=== PATIENT | female | born 1935 | race Asian ===

== ENCOUNTER → 2016-08-05 | Day surgery (SDC) | payer OTHER ==
[~2016-08-05] MED LIST: ACTOS PO; ACTOS30 MG PO; ALPRAZOLAM PO; AMARYL2 MG PO; ANEXSIA 7.5/3251 TA1 PO; ASPIRIN81 MG PO; ATORVASTATIN CA80 MG PO; AZULFIDINE ENT500 MG PO; AZULFIDINE PO; BENTYL10 MG DOB; BENZONATATE200 M1 PO; BETAMETHASONE D15 G1 TOP; BUMEX1 MG PO; CALCIUM + D 6001 TA1 PO; CALCIUM + VITA1 EACH PO; CALCIUM 600 +1 EA10 PO; CIPRO PO; CLOBETASOL 0.0560 GM TOP; ENBREL50 MG/ML IM; FISH OIL 1,2001 EAC2 PO; FOSAMAX PO; FOSAMAX70 MG PO; GLUCOPHAGE XR500 MG PO; HYDRALAZINE HCL25 MG PO; HYDROCODON-ACE1 EA12 PO; HYDROCODON-ACE1 EAC1 PO; HYDROCODON-ACE1 EAC7 PO; HYDROXYZINE HCL10 MG PO; JANUVIA PO; JANUVIA100 MG PO; K-DUR20 ME1 PO; LEFLUNOMIDE10 MG PO; LIPITOR20 MG PO; LOMOTIL WHITE2.5 M1 PO; LOMOTIL WHITE2.5 MG PO; LORTAB 7.5-3251 EACH PO; LORTAB 7.5-5001 TAB PO; LORTAB 7.51 TAB 7.5/ PO; MAG-OX 400400 MG PO; MEDROL DOSEPAK4 MG PO; METFORMIN HCL1000 M1 PO; METFORMIN HCL500 M1 PO; METOPROLOL SUCC25 MG PO; METOPROLOL TAR25 MG PO; MULTI VITAMIN1 EACH PO; NEURONTIN PO; NEURONTIN100 MG PO; NORVASC PO; NORVASC2.5 MG PO; ONDANSETRON HCL4 M1 PO; ORENCIA IV; PATIENT'S PHARMACY; PERCOCET5/325 PO; PHENERGAN PO; PHENERGAN25 MG PO; PIOGLITAZONE45 MG PO; PREDNISOLONE5 MG PO; PREDNISONE PO; PREDNISONE5 M1 PO; PREDNISONE5 MG PO; PRILOSEC PO; PRILOSEC20 MG DOB; PRILOSEC20 MG PO; PROTOPIC TOP; SIMPONI50 MG/0.1 SQ; SIMPONI50 MG/0.5 SQ; SULFADIAZINE500 M1 PO; SULFASALAZINE500 M1 PO; SULFAZINE PO; TESSALON200 MG PO; TOPROL XL PO; TRIAMCINOLONE A15 G3 EXT; TRIAMCINOLONE A15 G3 TOP; TYGACIL IV; VICODIN 5/500 T1 TAB PO; VITAMIN D 22000 UNIT PO; VITAMIN D2000 UNI1 PO; VITAMIN D2000 UNIT PO; XANAX0.5 M1 PO; XANAX0.5 MG PO; ZESTRIL10 M2 PO; ZOCOR PO; ZOCOR20 MG PO; ZOFRAN ODT4 MG; ZOFRAN ODT4 MG DOB; ZOFRAN ODT4 MG PO; ZOFRAN ODT4 MG SL; ZOVIRAX15 GM TP; ZOVIRAX400 MG PO; ZOVIRAX800 MG PO; [UNRECOGNIZED DRUG - OTHER] TOP
--- NOTE | ~2016-08-05 | OR ---
Unit #: [id number] #: [id number] Patient: REBECCA BAÑUELOS [id number] [address] [address] [id number] O MR#: [id number] NAME: REBECCA BAÑUELOS ROOM: Date of Procedure: 08/05/2016 Admission Date: 08/05/2016 Surgeon: Isreal Cook M.D. : 1935 Attending Physician: Isreal Cook M.D. Primary Care Physician: Isra Gamino M.D. [facility] OPERATIVE NOTE PROCEDURE PERFORMED Caudal epidural steroid injection under x-ray guided needle placement with provider administered conscious sedation. PREOPERATIVE DIAGNOSES 1. Acute lumbar radiculitis. 2. Spinal stenosis, lumbosacral spine. 3. Degenerative joint disease, lumbosacral spine. 4. Degenerative disk disease, lumbosacral spine. INDICATIONS FOR PROCEDURE The patient presents today with longstanding history of chronic lumbar radicular pain secondary to her underlying degenerative processes. She is generally fairly well managed medically with ongoing continuous conservative measures; however, she does occasionally experience exacerbations, which to date have only responded to interventional pain management procedures. She presents today currently experiencing exacerbation, which is completely consistent with past exacerbations and requests an epidural steroid injection. After discussing risks and benefits of proceeding today with a caudal approach epidural steroid injection, the patient agreed this would be the appropriate course of action. DESCRIPTION OF PROCEDURE She was then taken to the operating room, where she was prepped and draped in sterile manner. Standard monitors were applied. She was sedated with 2 mg of IV Versed and the caudal epidural space accessed under x-ray guidance using loss of resistance technique. Needle placement was confirmed with injection of 2 mL of Omnipaque. Following successful needle placement confirmation, the patient received an injectate containing 6 mL normal saline and 80 mg of methylprednisolone. She tolerated this procedure well. She was discharged home with followup instructions, which include return to this clinic on 11/13/2016 if we could be of further service to her. Total x-ray time was 3 seconds. Dictated by... Lnidsay Rizo/yared TD: 08/06/2016 01:17 JOB #: [id number] Unit #: [id number] #: [id number] Patient: REBECCA BAÑUELOS [facility] OPERATIVE NOTE X Hunter Cook MD PROCEDURE OPERATIVE NOTE
== END | disposition home or self-care (01) ==
LOC: CCSC 09:21
DX: M47.27 Other spondylosis with radiculopathy, lumbosacral region (principal); M51.17 Intervertebral disc disorders with radiculopathy, lumbosacral region; M48.07 Spinal stenosis, lumbosacral region; K21.9 Gastro-esophageal reflux disease without esophagitis; Z88.1 Allergy status to other antibiotic agents; Z88.2 Allergy status to sulfonamides
CPT/HCPCS: 82947; J1040; J2250

== ENCOUNTER 2016-10-23 14:40 | Emergency (ER) | payer OTHER ==
[~2016-10-23 14:40] MED LIST changes: -ASPIRIN81 MG PO; -ATORVASTATIN CA80 MG PO; -BENZONATATE200 M1 PO; -BUMEX1 MG PO; -CALCIUM 600 +1 EA10 PO; -HYDROCODON-ACE1 EA12 PO; -K-DUR20 ME1 PO; -LEFLUNOMIDE10 MG PO; -MAG-OX 400400 MG PO; -MEDROL DOSEPAK4 MG PO; -ONDANSETRON HCL4 M1 PO; -PATIENT'S PHARMACY; -SULFASALAZINE500 M1 PO
[2016-10-29] MEDS ORDERED: MEDROL DOSEPAK4 MG PO (12:54)
[2016-10-29] MEDS ORDERED: CALCIUM 600 +1 EA10 PO (12:59)
[2016-10-29] MEDS ORDERED: SULFASALAZINE500 M1 PO (13:05)
[2016-10-29] MEDS ORDERED: HYDROCODON-ACE1 EA12 PO (13:08)
[2016-10-29] MEDS ORDERED: ONDANSETRON HCL4 M1 PO (14:10)
[2016-10-29] MEDS ORDERED: BENZONATATE200 M1 PO (14:11)
[2016-10-29] MEDS ORDERED: LOMOTIL WHITE2.5 M1 PO (14:13)
[2016-10-29] MEDS ORDERED: LEFLUNOMIDE10 MG PO (14:14)
== END 2016-10-23 18:50 | disposition home or self-care (01) ==
LOC: CED 14:40
DX: G89.29 Other chronic pain (principal); M54.5 Low back pain; M06.9 Rheumatoid arthritis, unspecified; Z90.49 Acquired absence of other specified parts of digestive tract; Z88.0 Allergy status to penicillin; Z88.1 Allergy status to other antibiotic agents; Z88.8 Allergy status to other drugs, medicaments and biological substances; Z79.899 Other long term (current) drug therapy
CPT/HCPCS: 96372; 99283; J2270; J2930

== ENCOUNTER → 2016-10-30 | Day surgery (SDC) | payer OTHER ==
[~2016-10-30] MED LIST changes: +ASPIRIN81 MG PO; +ATORVASTATIN CA80 MG PO; +BENZONATATE200 M1 PO; +BUMEX1 MG PO; +CALCIUM 600 +1 EA10 PO; +HYDROCODON-ACE1 EA12 PO; +K-DUR20 ME1 PO; +LEFLUNOMIDE10 MG PO; +MAG-OX 400400 MG PO; +MEDROL DOSEPAK4 MG PO; +ONDANSETRON HCL4 M1 PO; +PATIENT'S PHARMACY; +SULFASALAZINE500 M1 PO
--- NOTE | ~2016-10-30 | OR ---
Unit #: [id number] #: [id number] Patient: REBECCA BAÑUELOS [id number] [address] [address] [id number] O MR#: [id number] NAME: REBECCA BAÑUELOS. ROOM: Date of Procedure: 10/30/2016 Admission Date: 10/30/2016 Surgeon: Isreal Cook M.D. : 1935 Attending Physician: Hunter Cook Referring Physician: Hunter Cook Primary Care Physician: Isra Gamino M.D. [facility]ENTER OPERATIVE NOTE PROCEDURE PERFORMED Lumbar epidural steroid injection under x-ray guided needle placement with provider administered conscious sedation. PREOPERATIVE DIAGNOSES 1. Acute lumbar radiculitis. 2. Spinal stenosis, lumbosacral spine. 3. Degenerative joint disease, lumbosacral spine. 4. Degenerative disk disease, lumbosacral spine. INDICATIONS FOR PROCEDURE The patient presents today with longstanding history of chronic lumbar radicular pain secondary to her underlying degenerative processes. She is generally fairly well managed medically with ongoing continuous conservative measures; however, she does occasionally experience exacerbations, which to date have only responded to epidural steroid injections. Her usual amount of relief is 80% for 8 to 10 weeks, whereupon she will develop a crescendo pattern recurrence requiring treatment. She presents today approximately 10 weeks out from her last epidural steroid injection stating that she got good relief up until approximately 2 to 4 weeks ago whereas her pain returned and advanced more rapidly and more aggressively and more severely at this time than in past. Her symptoms are similar to the past symptoms. After discussing risks and benefits of proceeding today with a lumbar approach epidural steroid injection utilizing a dual needle technique at the caudal and the L3-L4 level, the patient agreed this would be the appropriate course of action. DESCRIPTION OF PROCEDURE She was then taken to the operating room, where she was prepped and draped in a sterile manner. Standard monitors were applied. She was sedated with 2 mg of IV Versed and the caudal epidural space was accessed using loss of resistance technique and x-ray guidance. Needle placement was confirmed with injection of 2 mL of Omnipaque. The patient received 6 mL of normal saline, 40 mg of methylprednisolone. Following which the L3-L4 level was accessed; however, the patient up on twice having the L3-L4 level accessed using loss of resistance technique and x-ray guidance, experienced rather severe paresthesias. Following this, the needle was replaced at the L4-L5 level again using loss of resistance technique and x-ray guidance, and again confirming needle placement with 2 mL of Omnipaque. At this point, almost all dye flow was in the superior direction. The patient experienced some discomfort, but it was not as severe and sharp as that experienced while at the L3-L4 level. Given that we are getting good superior flow into the L3-L4 level, it was felt this Unit #: [id number] #: [id number] Patient: REBECCA BAÑUELOS would be an acceptable needle placement location. Total x-ray time for this dual needle placement was 10 seconds. Following successful needle placement at the L4-L5 level, the patient received an injectate containing 4 mL of normal saline, 40 mg of methylprednisolone. She tolerated this procedure well. She was discharged home with followup instructions, which include an offer to return to this clinic as early as 01/06 if we could be of further service to her. Dictated by... Isreal Cook M.D. AMY/yared TD: 10/30/2016 11:09 JOB #: [id number] CC: Isra Gamino M.D. SUR[facility] CENTER OPERATIVE NOTE Page 1 of 1 X Hunter Cook MD X PROCEDURE OPERATIVE NOTE
== END | disposition home or self-care (01) ==
LOC: CCSC 08:15
DX: G89.29 Other chronic pain (principal); M51.17 Intervertebral disc disorders with radiculopathy, lumbosacral region; M48.07 Spinal stenosis, lumbosacral region; M47.27 Other spondylosis with radiculopathy, lumbosacral region; K21.9 Gastro-esophageal reflux disease without esophagitis; Z87.01 Personal history of pneumonia (recurrent); Z88.1 Allergy status to other antibiotic agents; Z88.2 Allergy status to sulfonamides; Z88.8 Allergy status to other drugs, medicaments and biological substances; Z90.49 Acquired absence of other specified parts of digestive tract; Z79.84 Long term (current) use of oral hypoglycemic drugs; Z79.891 Long term (current) use of opiate analgesic; Z79.52 Long term (current) use of systemic steroids; Z79.899 Other long term (current) drug therapy; Z98.42 Cataract extraction status, left eye; Z96.1 Presence of intraocular lens; Z98.890 Other specified postprocedural states
CPT/HCPCS: 82947; J1040; J2250; J3010

== ENCOUNTER 2016-11-05 10:39 | Inpatient (IN) | payer OTHER ==
--- NOTE | ~2016-11-05 | A ---
[facility] Nutrition Therapy DATE: 11/06/16 Patient: REBECCA BAÑUELOS Physician: ALLYSON Address: [address] [place] [address] Room/Bed: [address] [place] [address], Zip: [place] [address] Admit Date: 11/05/16 Date of : [birth year] Height: 5 2 Weight: 82 37.6 NUTRITIONAL ASSESSMENT: REASON: Low BMI 81 yo female admitted for new onset CHF PMH: RA, DM, osteoporosis, shingles, HLD, lumbar spinal stenosis, ERCP, cholecystectomy, aortic stenosis, previous acute liver injury for unknown reasons Anthropometrics: Ht: 62" Wt: 38.2 kg BMI: 15.4 IBW: 50 kg, 76% IBW Labs: Gluc 93 Creat 0.5 Ca++ 8.1 Mg++ 1.3 BNP 1936 Meds: Spironolactone, mag-ox, prednisone, bumex, novolog, protonix, zofran, Os-Hardeep 500 + D, vitamin D, therapeutic formula I/O & Bowel function: 855/700, last BM 11/05 Skin Integrity: Bruises scattered Small red rash right buttock Edema: None noted Estimated Nutrition Needs: Increased due to low body weight Diet: Heart healthy + 1500 mL fluid restriction Assessment: Chart reviewed, events noted. 81 yo female admitted for new onset CHF. Pt presents underweight with a BMI of 15.4 and 76% of her IBW. Daily weights and 1500 mL fluid restriction ordered by . RD observed the pt's lunch tray in room, and it appears she only took a couple bites of each food item. RD spoke with the pt and her . Pt reports that she has lost ~10# in the last couple of months d/t illness and back pain. Pt also reports that she just recently had cataract surgery and has diarrhea ever since. Pt's stated that she has "Always been small" with a usual body weight of 93-95#. RD discussed the importance of adequate protein-energy intake/ weight gain and suggested smaller, more frequent meals with Magic Cup and Ensure Compact supplements (appropriate for fluid restriction). Pt agreed. RD will order. Dx: Severe protein-calorie malnutrition RT decreased appetite, illness, back pain AEB pt reported prolonged poor intake and 10# weight loss over the past couple of months (11% weight loss). Intervention: [facility] Nutrition Therapy DATE: 11/06/16 Patient: REBECCA Yang EDDA Physician: ALLYSON Address: [address] [place] [address] Room/Bed: [address] [place] [address], Zip: [place] [address] Admit Date: 11/05/16 Date of : [birth year] Height: 5 2 Weight: 82 37.6 1. Liberalize to 2 gram Na+ diet (discontinue fat restriction) 2. Continue fluid restriction per MD 3. Magic Cup BID 4. Ensure Compact BID Monitoring, Evaluation and Goals: 1. Oral intake; tolerate >50% of meals and supplements 2. Weight; promote weight gain, prevent weight loss 3. Improve labs; electrolytes Recommendations: 1. Liberalize to a 2 gram Na+/ 6 small meals diet, as the pt does not require the fat restriction from heart healthy diet. 2. Continue fluid restriction per MD orders. 3. Ensure Compact vanilla (118 mL each) BID and Magic Cup vanilla BID (does not count towards fluid restriction) for supplemental nutrition. Pt is at moderate nutritional risk. RD will continue to follow up per protocol. Respectfully, CHARY SANDS RD, LD Food and Nutritional Services [facility] cc: client file
--- NOTE | ~2016-11-05 | CO ---
Unit #: [id number] #: [id number] Patient: REBECCA BAÑUELOS [id number] [address] [address] [id number] I MR#: [id number] NAME: REBECCA BAÑUELOS ROOM: 579 Age: 81 Sex: F Admission Date: 11/05/2016 : 1935 Attending Physician: Isra Gamino M.D. Primary Care Physician: Isra Gamino M.D. Consultation Date: 11/05/2016 CONSULTATION REPORT ADDENDUM This is Kendal Mosley APRN dictating. HOME MEDICATIONS Prednisone 5 mg p.o. b.i.d., metformin 1000 mg p.o. b.i.d., Norvasc 7.5 mg p.o. daily, Neurontin 100 mg p.o. t.i.d., multivitamin 1 p.o. daily, vitamin D of 2000 units p.o. daily, hydralazine 25 mg p.o. t.i.d., Toprol-XL 25 mg p.o. daily, Amaryl 2 mg p.o. before breakfast, Zestril 10 mg p.o. daily, hydroxyzine hydrochloride 10 mg p.o. b.i.d., calcium with vitamin D one p.o. daily, sulfasalazine EC 1000 mg p.o. q.i.d., hydrocodone with acetaminophen mg 1 p.o. q.i.d., Zofran 4 mg p.o. q.i.d. as needed for nausea, benzonatate 200 mg p.o. t.i.d., Lomotil 1 tablet p.o. q.i.d., leflunomide 10 mg p.o. daily, Prilosec [address]AN [address] Tobar discussed . Dictated by... MARIELA Reese/yared TD: 11/06/2016 02:25 JOB #: [id number] CONSULTATION REPORT Page 1 of 1 X X CONSULTATION REPORT
--- NOTE | ~2016-11-05 | HP ---
Unit #: [id number] #: [id number] Patient: REBECCA BAÑUELOS [id number] [address] [place], [place] [address] [id number] I MR#: [id number] NAME: REBECCA BAÑUELOS. ROOM: 579 Age: 81 Sex: F Admission Date: 11/05/2016 : 1935 Attending Physician: Isra Gamino M.D. Primary Care Physician: Isra Gamino M.D. HISTORY AND PHYSICAL HISTORY OF PRESENT ILLNESS The patient is an 81-year-old female with a history of rheumatoid arthritis, hypertension, type 2 diabetes mellitus, osteoporosis, recurrent shingles, hyperlipidemia, lumbar spinal stenosis, aortic stenosis, severe aortic insufficiency, mitral regurgitation, generalized anxiety disorder, previous acute liver injury of unclear etiology possibly autoimmune hepatitis versus Actos or statin therapy. In any case, she recently had cataract surgery, recently had problems with sciatica for which she has had multiple ER visits and epidurals. Then, about 3 days ago, she began having cough, congestion, shortness of air, PND, orthopnea. No chest pain, no lower extremity edema. She has already seen Dr. Rodríguez on an outpatient basis for her severe aortic stenosis but refused referral to cardiothoracic surgery in the past for valve replacement or repair. In any case, she arrived in the emergency room and was in florid congestive heart failure with tachypnea and tachycardia, mild hypoxemia. Chest x-ray consistent with CHF. BNP markedly elevated and she is admitted for same. PAST MEDICAL HISTORY 1. Rheumatoid arthritis. 2. Aortic stenosis. 3. Hypertension. 4. Type 2 diabetes mellitus. 5. Lumbar spinal stenosis. 6. Hyperlipidemia. 7. Osteoporosis. 8. Aortic insufficiency. 9. Mitral regurgitation. 10. Recurrent shingles. 11. Chronic steroid use. PAST SURGICAL HISTORY 1. Cholecystectomy. 2. ERCP. 3. Ankle repair. 4. Right axillary lipoma. 5. Recent bilateral cataract surgery. HOME MEDICATIONS 1. Prednisone 5 mg p.o. b.i.d. 2. Metformin 1000 mg p.o. b.i.d. 3. Norvasc 7.5 mg daily. 4. Neurontin 100 mg t.i.d. Unit #: [id number] #: [id number] Patient: REBECCA BAÑUELOS 5. Multivitamins one daily. 6. Vitamin D 2000 units daily. 7. Hydralazine 25 mg t.i.d. 8. Toprol XL 25 mg daily. 9. Amaryl 2 mg p.o. daily with breakfast. 10. Zestril 10 mg daily. 11. Clobetasol 0.05% cream topically p.r.n. 12. Hydroxyzine 10 mg b.i.d. 13. Calcium plus D one p.o. daily. 14. Sulfasalazine 1000 mg q.i.d. 15. [place] 2.5/325 q.i.d. p.r.n. for pain. 16. Zofran 4 mg q.i.d. p.r.n. for nausea or vomiting. 17. Tessalon 200 mg t.i.d. p.r.n. for cough. 18. Lomotil one tab q.i.d. p.r.n. for diarrhea. 19. Leflunomide 10 mg daily. 20. Prilosec 20 mg daily. ALLERGIES 1. Famvir. 2. Ceftin. 3. Bactrim. 4. Reglan. 5. Zithromax. 6. Amoxicillin. 7. Augmentin. 8. Cipro. 9. Possible hepatitis from Actos or statin therapy in the past. SOCIAL HISTORY . Not employed. Nonsmoker, nondrinker, no street drug use. FAMILY HISTORY Noncontributory. PHYSICAL EXAMINATION VITAL SIGNS: Temperature afebrile, pulse 102, respirations 25, blood pressure 121/73, O2 saturation 92% on room air. GENERAL: She is awake, alert, oriented x3. No acute distress. is at the bedside during history and physical examination. HEENT: Unremarkable except for evidence of bilateral lens implants. NECK: Supple without JVD, bruits, adenopathy, or thyromegaly. LUNGS: Bibasilar rales. HEART: Regular rate and rhythm with a loud 4/6 systolic murmur best appreciated at the right upper sternal border. ABDOMEN: Soft, nondistended, nontender with positive bowel sounds and no hepatosplenomegaly. EXTREMITIES: No clubbing, cyanosis, or edema. GENITOURINARY: Deferred. RECTAL: Deferred. NEUROLOGIC: Grossly intact. DIAGNOSTIC STUDIES LABORATORY: CBC was normal except for hemoglobin of 10.9. CMP normal except potassium of 3.4. Random blood sugar 146. PT/INR 1.0, PTT 32.1. BNP 2626. Troponin 0.05. IMAGING: Chest x-ray reportedly showed "CHF." There is no official report yet. Unit #: [id number] #: [id number] Patient: REBECCA BAÑUELOS CARDIOVASCULAR: EKG shows a sinus tachycardia at 105 beats per minute with PACs. Septal Q waves in V2. Poor R-wave progression. New ST elevation albeit asymmetrical in V2 and V3 with associated T-wave inversion following the ST elevation. IMPRESSION 1. New-onset congestive heart failure. 2. Severe aortic stenosis. 3. Aortic insufficiency. 4. Mitral regurgitation. 5. Lumbar spinal stenosis. 6. Hyperlipidemia. 7. Type 2 diabetes mellitus. 8. Osteoporosis. 9. Rheumatoid arthritis. 10. Recurrent shingles. 11. Generalized anxiety disorder. 12. Hypokalemia. 13. EKG changes. 14. Slightly elevated but nondiagnostic troponin. 15. Prior cholecystectomy. 16. Status post right axillary lipoma removal. 17. History of ankle repair. PLAN 1. Rule out [place] by serial isoenzymes. 2. Diurese with Bumex. 3. Discussed with Cardiology. Only feasible option at this point is for TAVR but she is still high risk candidate. 4. Will place her on nitroglycerin paste, Bumex, Lovenox. 5. Fluid restriction, increase potassium level. 6. 2D echo. 7. Further evaluation pending results of the above. Dictated by Isra Gamino M.D. NEIL/chandana TD: 11/05/2016 18:05 JOB #: [id number] HISTORY AND PHYSICAL Page 1 of 1 X Isra Gamino MD X HISTORY AND PHYSICAL
--- NOTE | ~2016-11-05 | CR63 ---
[facility] A Service of [facility] RADIOLOGY TEXT RESULTS PATIENT: REBECCA BAÑUELOS LOCATION: [facility] 579- : 36 UNIT #: [id number] AGE: [address]: Isra Gamino MD SEX: F ORDER DR: [id number] [facility] [address]. [place], [place] [address] [id number] I MR#: [id number] Acc #: [id number] NAME: REBECCA BAÑUELOS. : 1935 SEX: F STUDY DATE/TIME: 11/07/2016 08:41 UNIT: [facility] ROOM: [facility] STUDY DESCRIPTION: CR Chest 2 View Attending Physician: Isra Gamino M.D. Ordering Physician: Preston Mansfield M.D. Primary Care Physician: Isra Gamino M.D. MEDICAL IMAGING REPORT This report is preliminary unless electronic signature is present EXAM Chest 2 views, 11/07/2016 08:41 hours HISTORY Shortness of air, congestive heart failure, preop for cardiac catheterization. Symptoms for 1 week. COMPARISON 11/05/2016 FINDINGS Upright AP and lateral views of the chest demonstrate mild cardiomegaly and a tortuous atherosclerotic aorta unchanged. The pulmonary vascularity is normal. The lungs are now clear with resolution of bilateral diffuse interstitial changes. There are persistent small to moderate bilateral pleural effusions. IMPRESSION Interval clearing of diffuse bilateral edema. Small to moderate bilateral pleural effusions are seen best on the lateral view with blunting of the posterior sulci. These effusions are likely also improved from 11/05/2016. Dictated by... Sarah Huitron M.D. THIS IS AN ELECTRONICALLY VERIFIED REPORT Sarah Huitron M.D. at 11/07/2016 2:30 PM José Manuel TD: 11/07/2016 11:22 JOB #: [id number] MEDICAL IMAGING REPORT [facility] A Service of [facility] RADIOLOGY TEXT RESULTS PATIENT: REBECCA BAÑUELOS LOCATION: [facility] 579-01 : 37 UNIT #: [id number] AGE: [address]: Isra Gamino MD SEX: F ORDER DR: Page 1 of 1 COPY
--- NOTE | ~2016-11-05 | EKG ---
PATIENT: REBECCA BAÑUELOS UNIT #: [id number] Ventricular Rate: 76 BPM Atrial Rate: 76 BPM P-R Interval: 152 ms QRS Duration: 82 ms Q-T Interval: 464 ms QTC Calculation(Bezet): 522 ms P [place]: -3 degrees Calculated R [place]: 75 degrees Calculated T [place]: 125 degrees Diagnosis Line: Normal sinus rhythm Diagnosis Line: Left ventricular hypertrophy with repolarization Diagnosis Line: abnormality Diagnosis Line: Prolonged QT Diagnosis Line: Abnormal ECG Diagnosis Line: When compared with ECG of 06-NOV-2016 05:34, Diagnosis Line: ST no longer depressed in Anterior leads Diagnosis Line: T wave inversion now evident in Lateral leads Diagnosis Line: Confirmed by FRANCISCO CHARLES MD ([id number]) on 11/10/2016 Diagnosis Line: 4:21:09 PM INTERPRETING MD: MELVIN CHISHOLM
--- NOTE | ~2016-11-05 | DS ---
Unit #: [id number] #: [id number] Patient: REBECCA BAÑUELOS [id number] [address] [place], [place] [address] [id number] I MR#: [id number] NAME: REBECCA BAÑUELOS. ROOM: 579 Age: 81 Sex: F Admission Date: 11/05/2016 : 1935 Discharge Date: 11/09/2016 Attending Physician: Isra Gamino M.D. Primary Care Physician: Isra Gamino M.D. DISCHARGE SUMMARY PRINCIPAL DISCHARGE DIAGNOSES 1. Acute systolic congestive heart failure. 2. Severe aortic stenosis. 3. Moderate mitral regurgitation. 4. Severe left ventricular dysfunction with an ejection fraction of 20% to 25%. 5. Moderate mitral stenosis. 6. Type 2 diabetes mellitus. 7. Lumbar spinal stenosis. 8. Rheumatoid arthritis. 9. Hyperlipidemia. 10. Osteoporosis. 11. Recurrent shingles. 12. Generalized anxiety disorder. PROCEDURES None. CONSULTANTS Dr. Amara Tobar from cardiology. REASON FOR HOSPITALIZATION The patient is an 81-year-old female with a history of rheumatoid arthritis, hypertension, hyperlipidemia, lumbar spinal stenosis, osteoporosis, known aortic stenosis, who had previously declined surgical intervention and evaluation for repair, presents to the emergency room with shortness of air, cough, congestion. Found to be in acute systolic CHF and admitted. She was placed on IV diuretics, fluid restriction, healthy-heart diet, strict I's and O's, nitroglycerin paste. Accu-Cheks obtained a.c. and h.s., low dose sliding scale insulin. Cardiology consulted. Electrolytes and renal function followed. Troponins within normal limits. Patient originally scheduled to have a right and left heart cath but, upon further discussion with the thoracic surgeons they did not feel like she was a good candidate so this was held. She had occupational and physical therapy. Again, she was diuresed with IV Bumex and then switched to oral doses. Room air O2 saturation was 100%, 96% with ambulation. She was discharged home on 11/09/2016 on a 1500 mL fluid restriction, healthy-heart diet. She was to have an office visit with me in one week. She was to see Dr. Tobar on 12/13/2016 at noon. She was to follow up with Dr. Duffy on 11/19/2016 at 1 p.m. DISCHARGE MEDICATIONS 1. Prednisone 5 mg p.o. b.i.d. Unit #: [id number] #: [id number] Patient: REBECCA BAÑUELOS 2. Magnesium oxide 400 mg p.o. b.i.d. 3. Clobetasol propionate topically daily p.r.n. 4. Neurontin 100 mg p.o. t.i.d. 5. Metformin was discontinued because of the new diagnosis of CHF requiring diuretic therapy. 6. She is also on Lomotil one p.o. q.i.d. p.r.n. for diarrhea. 7. Zofran 4 mg p.o. q.i.d. p.r.n. for nausea or vomiting. 8. Lipitor 80 mg p.o. daily. 9. Tessalon 200 mg p.o. t.i.d. p.r.n. for cough. 10. Hydralazine was discontinued. 11. Norvasc was discontinued. 12. She is on Toprol XL 25 mg increased to b.i.d. from daily. 13. Bumex 1 mg p.o. b.i.d. 14. Zestril 10 mg p.o. daily. 15. Arava 10 mg p.o. daily. 16. Multivitamins one daily. 17. Enteric-coated aspirin 81 mg daily. 18. [place] 2.5/325 one q.i.d. p.r.n. for pain. 19. Prilosec 20 mg daily. 20. Calcium plus D one p.o. daily. 21. Potassium 20 mEq p.o. daily. 22. Sulfasalazine enteric-coated 1000 mg q.i.d. 23. Amaryl 2 mg p.o. daily. 24. Vitamin D 2000 units p.o. daily. Please note, when she follows up in the office, she will have a repeat BMP and magnesium level. Dictated by... Isra Gamino M.D. NEIL/chandana TD: 11/18/2016 23:00 JOB #: [id number] CC: Agustin/hailee Please Delete DISCHARGE SUMMARY Page 1 of 1 X Isra Gamino MD X DISCHARGE SUMMARY
--- NOTE | ~2016-11-05 | EKG ---
PATIENT: REBECCA BAÑUELOS UNIT #: [id number] Ventricular Rate: 96 BPM Atrial Rate: 96 BPM P-R Interval: 138 ms QRS Duration: 78 ms Q-T Interval: 438 ms QTC Calculation(Bezet): 553 ms P [place]: 36 degrees Calculated R [place]: 39 degrees Calculated T [place]: 79 degrees Diagnosis Line: Normal sinus rhythm Diagnosis Line: Left ventricular hypertrophy with repolarization Diagnosis Line: abnormality Diagnosis Line: Prolonged QT Diagnosis Line: Abnormal ECG Diagnosis Line: When compared with ECG of 05-NOV-2016 11:23, Diagnosis Line: Premature atrial complexes are no longer Present Diagnosis Line: Criteria for Septal infarct are no longer Present Diagnosis Line: T wave inversion less evident in Anterior leads Diagnosis Line: Confirmed by FRANCISCO CHARLES MD ([id number]) on 11/07/2016 Diagnosis Line: 6:27:20 PM INTERPRETING MD: MELVIN CHISHOLM
--- NOTE | ~2016-11-05 | CO ---
Unit #: [id number] #: [id number] Patient: REBECCA BAÑUELOS [id number] [address] [address] [id number] I MR#: [id number] NAME: REBECCA BAÑUELOS. ROOM: 579 Age: 81 Sex: F Admission Date: 11/05/2016 : 1935 Attending Physician: Isra Gamino M.D. Primary Care Physician: Isra Gamino M.D. Consultation Date: 11/05/2016 CONSULTATION REPORT ADDENDUM This is just a correction to the last addendum. HOME MEDICATIONS 1. Prednisone 5 mg p.o. b.i.d. 2. Metformin 1000 mg p.o. b.i.d. 3. Norvasc 7.5 mg p.o. daily. 4. Neurontin 100 mg p.o. t.i.d. 5. Multivitamin, one p.o. daily. 6. Vitamin D, 2000 units p.o. daily. 7. Hydralazine 25 mg p.o. t.i.d. 8. Toprol-XL 25 mg p.o. daily. 9. Amaryl 2 mg p.o. before breakfast. 10. Zestril 10 mg p.o. daily. 11. Hydroxyzine hydrochloride 10 mg p.o. twice a day. 12. Calcium with vitamin D, one p.o. daily. 13. Sulfasalazine EC 1000 mg p.o. four times a day. 14. Hydrocodone with acetaminophen 5/325 mg, one p.o. four times a day. 15. Zofran 4 mg p.o. four times a day as needed for nausea. 16. Benzonatate 200 mg p.o. three times a day. 17. Lomotil, one p.o. four times a day. 18. Leflunomide 10 mg p.o. daily. 19. Prilosec [address]AN [address] Tobar met with the patient and her and discussed at length treatment options for her aortic stenosis. Discussed the need for cardiac catheterization and [place] prior to any interventions. The patient and her expressed some concerns over interventional procedures. Stated they would like to discuss with the patient's daughter and decide how they would like to proceed. The patient is leaning towards treatment with diuretics and symptom relief at this time and then re-evaluating her aortic stenosis as an outpatient with her normal lab director, Dr. Rodríguez. Dictated by... MARIELA Reese/christy TD: 11/08/2016 07:14 JOB #: [id number] Unit #: [id number] #: [id number] Patient: REBECCA BAÑUELOS CONSULTATION REPORT Page 1 of 1 X X CONSULTATION REPORT
--- NOTE | ~2016-11-05 | CR72 ---
[facility] A Service of [facility] RADIOLOGY TEXT RESULTS PATIENT: REBECCA BAÑUEOLS LOCATION: Psychiatric 579 : 37 UNIT #: [id number] AGE: [address]: Isra Gamino MD SEX: F ORDER DR: [id number] [facility] [address]. [place], [place] [address] [id number] I MR#: [id number] Acc #: [id number] NAME: REBECCA BAÑUELOS. : 1935 SEX: F STUDY DATE/TIME: 11/05/2016 UNIT: Psychiatric ROOM: 9 STUDY DESCRIPTION: CR Chest Single View Portable Attending Physician: Isra Gamino M.D. Ordering Physician: Tim Minor M.D. Primary Care Physician: Isra Gamino M.D. MEDICAL IMAGING REPORT This report is preliminary unless electronic signature is present EXAM Chest portable 11/05/2016, 1139 hours HISTORY 1-week history of shortness of air and upper back pain. History of diabetes and mitral valve prolapse. COMPARISON 01/19/2015. FINDINGS Supine portable chest film demonstrates stable heart size and tortuous atherosclerotic aorta. There is diffuse bilateral interstitial change and likely posterior layering effusions. Findings most likely represent congestive heart failure. IMPRESSION Diffuse bilateral interstitial changes and likely posteriorly layering effusions resulting in a ground-glass appearance, ueuq-zvosjpu-qccu-right lung bases. Findings are most suggestive of moderate congestive heart failure. Dictated by... Sarah Huitron M.D. THIS IS AN ELECTRONICALLY VERIFIED REPORT Sarah Huitron M.D. at 11/06/2016 9:31 AM NELL/jenny TD: 11/05/2016 16:15 JOB #: [id number] [facility] A Service of [facility] RADIOLOGY TEXT RESULTS PATIENT: REBECCA BAÑUELOS LOCATION: Psychiatric 579 : 37 UNIT #: [id number] AGE: [address]: Isra Gamino MD SEX: F ORDER DR: MEDICAL IMAGING REPORT Page 1 of 1 COPY
--- NOTE | ~2016-11-05 | EKG ---
PATIENT: REBECCA BAÑUELOS UNIT #: [id number] Ventricular Rate: 105 BPM Atrial Rate: 105 BPM P-R Interval: 140 ms QRS Duration: 84 ms Q-T Interval: 394 ms QTC Calculation(Bezet): 520 ms P [place]: 53 degrees Calculated R [place]: 51 degrees Calculated T [place]: 69 degrees Diagnosis Line: Sinus tachycardia with Premature atrial complexes Diagnosis Line: Possible Left atrial enlargement Diagnosis Line: Left ventricular hypertrophy Diagnosis Line: Prolonged QT Diagnosis Line: Nonspecific ST and T wave abnormality Diagnosis Line: Abnormal ECG Diagnosis Line: When compared with ECG of 19-JAN-2015 18:25, Diagnosis Line: ST-T abnormalities worse Diagnosis Line: Confirmed by SANDY MONTEZ MD ([id number]) on Diagnosis Line: 11/05/2016 10:19:24 PM INTERPRETING MD: RACHEL
--- NOTE | ~2016-11-05 | CO ---
Unit #: [id number] #: [id number] Patient: REBECCA BAÑUELOS [id number] [facility]. [address] [place], [place] [address] [id number] I MR#: [id number] NAME: REBECCA BAÑUELOS. ROOM: 579 Age: 81 Sex: F Admission Date: 11/05/2016 : 1935 Attending Physician: Isra Gamino M.D. Primary Care Physician: Isra Gamino M.D. Consultation Date: 11/05/2016 CONSULTATION REPORT REASON FOR CONSULTATION Congestive heart failure and aortic stenosis. HISTORY OF PRESENT ILLNESS This is an 81-year-old female who is the patient of Dr. Rodríguez with Cardiology. She has a prior medical history of aortic stenosis, mitral regurgitation, hypertension, hyperlipidemia, diabetes type 2, rheumatoid arthritis, and lumbar spinal stenosis. She also has a history of acute hepatitis with unclear etiology and generalized anxiety disorder. Her [place] done on 02/18/2011 showed LVEF 55%, mild mitral regurgitation, and dmtneeew-pe-jeonnv aortic stenosis. She presented at ER with shortness of breath and wheezing. States she woke up yesterday with some shortness of breath. Denies recent illness, but states she has been struggling with chronic lower back pain over the last 2 weeks for prior infrequent doctors visits. In addition, she had cataract surgery 5 days ago. She does report orthopnea, PND, and dyspnea on exertion. Denies recent weight gain. States she has had a weight loss with decreased appetite over the last month. Denies fever, body aches, or chills. Does have nausea. Her chest x-ray showed cardiomegaly and bilateral pleural effusions. We were asked to see her to manage her congestive heart failure and evaluated the severity of aortic stenosis. Denies chest pain. Some chest tightness and shortness of air in left chest as present. PAST MEDICAL HISTORY 1. Valvular heart disease - aortic stenosis and mitral regurgitation per [place], 02/18/2011. 2. Hypertension. 3. Hyperlipidemia. 4. Diabetes mellitus type 2. 5. Rheumatoid arthritis. 6. Osteoporosis. 7. Lumbar spinal stenosis. 8. History of acute hepatitis with unclear etiology. 9. Generalized anxiety disorder. PAST SURGICAL HISTORY 1. ERCP with stent. 2. Ankle repair. 3. Cholecystectomy. 4. Cataract surgery approximately 5 days ago. Unit #: [id number] #: [id number] Patient: REBECCA BAÑUELOS SOCIAL HISTORY She lives at home with her . Denies alcohol or illicit drug use. Denies tobacco use. FAMILY HISTORY Denies any family history of premature coronary artery disease. ALLERGIES Azithromycin, Ceftin, Augmentin, Bactrim DS, ciprofloxacin, tetracycline, and levofloxacin due to diarrhea. REVIEW OF SYSTEMS Positive for shortness of air, orthopnea, PND, lower back pain, decreased appetite, and weight loss. Otherwise negative except for what was stated in the HPI. PHYSICAL EXAMINATION VITAL SIGNS: Temperature 97.6, heart rate 109, respiratory rate 26, blood pressure 121/73. GENERAL: This is a pleasant 81-year-old female, who is resting in bed. She appears ill and restless. HEENT: Head is atraumatic and normocephalic. Pupils are equal and round. Mucous membranes are moist. NECK: Supple. Trachea is midline. Positive for JVD. LUNGS: Rales throughout. She has audibly wheezing. She is tachypneic. CARDIOVASCULAR: S1 and S2. Regular rate and rhythm. Positive murmur. ABDOMEN: Soft, nontender, and nondistended. EXTREMITIES: Pulses are palpable. No pedal edema. No cyanosis. NEUROLOGIC: Alert and oriented x3. Moves all extremities equally and follows commands without difficulty. DIAGNOSTIC STUDIES LABORATORY RESULTS: Sodium 139, potassium 3.4, chloride 109, BUN 14, creatinine 0.5, glucose 146. Hemoglobin 10.9, hematocrit 33.9, white blood cell count 8.9, and platelets 410. PT 11, INR 1, PTT 32. BNP 2626. IMAGING STUDIES: Chest x-ray in the ER shows cardiomegaly with pleural effusions. CARDIOVASCULAR STUDIES: EKG shows sinus tachycardia with a ventricular rate of 102 and nonspecific T-wave abnormalities in V3. ASSESSMENT 1. Acute congestive heart failure, likely diastolic, await echo results. 2. Valvular heart disease - 02/18/2011. 3. Hypertension. 4. Hyperlipidemia. 5. Diabetes mellitus. 6. Lumbar spinal stenosis. 7. Rheumatoid arthritis. 8. Anxiety disorder. PLAN 1. Cardiac enzymes x2 six hours apart. We will trend enzymes and EKG for any changes. 2. Strict I and O. 3. Daily weighs. 4. 1500 mL fluid restriction. Unit #: [id number] #: [id number] Patient: REBECCA BAÑUELOS 5. Check echocardiogram. 6. Replace potassium. 7. BMP and CBC in the morning. 8. Diurese. We will start with Bumex 2 mg IV b.i.d. Follow up creatinine closely. 9. Obtain medical records. 10. Continue home medication regimen with Norvasc, metoprolol, hydralazine, and lisinopril. 11. We will discuss with MD. 12. Hypokalemia. Thank you for asking us to see this patient. We appreciate the consult. Dictated by... Kendal Mosley APRN for Lindsay Mcmanus/yared TD: 11/06/2016 16:14 JOB #: [id number] CONSULTATION REPORT Page 1 of 1 X X CONSULTATION REPORT
--- NOTE | ~2016-11-05 | MAL ---
[facility] Nutrition Therapy DATE: 11/06/16 Patient: REBECCA BAÑUELOS Physician: ALLYSON Address: [address] [place] [address] Room/Bed: [address] [place] [address], Zip: [place] [address] Admit Date: 11/05/16 Date of : [birth year] Height: 5 2 Weight: 82 37.6 PHYSICAL MALNUTRITION ASSESSMENT Energy Intake, Chronic Illness Severely reduced: </=50% needs for >/=1 month Energy Intake Comment: Pt reports prolonged poor intake of low calorie and low protein foods for the past couple of months. Weight Loss, Chronic Illness Severe: >7.5% past 3 months Weight Loss, Comment: Pt reports UBW of 93-95# and weight loss of ~10#, indicating 11% weight loss in the past 2-3 months. Physical Findings Body Fat and Muscle Mass Severe: (obvious) significant muscle wasting and/or loss of subcutaneous fat Physical Findings Comment: Hollow depression and loose skin around eyes. Protruding, prominent clavicle bone and squaring of shoulder to arm joint. Malnutrition Survey Results: Malnutrition identified Malnutrition Etiology Summary: Chronic illness severe Malnutrition Survey Comment: See RD nutrition assessment for additional details. Respectfully, CHARY SANDS RD, LD [employer] [facility] cc: client file
[~2016-11-05 10:39] MED LIST changes: -ASPIRIN81 MG PO; -ATORVASTATIN CA80 MG PO; -BUMEX1 MG PO; -K-DUR20 ME1 PO; -MAG-OX 400400 MG PO; -PATIENT'S PHARMACY
[2016-11-05 11:38] LABS: BASOPHIL# 0.1 X10e3 (0-0.3); BASOPHIL% 0.7 % (0-2.5); EOSINOPHIL# 0.1 X10e3 (0-0.7); EOSINOPHIL% 0.9 % (0.0-7.0); HEMATOCRIT 33.9 % (35.0-45.0); HEMOGLOBIN 10.9 gm/dL (12.0-16.0); LYMPHOCYTE# 1.3 X10e3 (1.0-3.5); LYMPHOCYTE% 14.5 % (17.0-45.0); MEAN CELL VOLUME 97.5 FL (83-96); MEAN CORPUSCULAR HEMOGLOBIN 31.3 PG (28-34); MEAN CORPUSCULAR HGB CONC 32.1 g/dL (30-36); MEAN PLATELET VOLUME 6.5 FL (6.5-11.5); MONOCYTE# 0.6 X10e3 (0-1.0); MONOCYTE% 6.4 % (3.0-12.0); NEUTROPHIL# 6.9 X10e3 (1.5-7.1); NEUTROPHIL% 77.5 % (40-75); PLATELET COUNT 410 X10e3 (140-420); RED BLOOD COUNT 3.47 X10e (3.90-5.30); RED CELL DISTRIBUTION WIDTH 14.5 % (11.0-15.5); WHITE BLOOD COUNT 8.9 X10e3 (4.0-10.5)
[2016-11-05 11:48] LABS: DIFF IND NO
[2016-11-05 11:55] LABS: PARTIAL THROMBOPLASTIN TIME 32.1 SECONDS (23.5-31.3)
[2016-11-05 12:06] LABS: ALBUMIN SERUM 3.6 g/dL (3.5-5.0); ALKALINE PHOSPHATASE 58 U/L (32-92); ALT (SGPT) 12 U/L (10-40); AST (SGOT) 18 U/L (10-42); BILIRUBIN,TOTAL 0.5 mg/dL (0.2-2.0); BLOOD UREA NITROGEN 14 mg/dL (9-23); CALCIUM SERUM 8.4 mg/dL (8.4-10.2); CARBON DIOXIDE 23 mmol/L (22-31); CHLORIDE 109 mmol/L (100-111); CREATININE SERUM 0.5 mg/dL (0.6-1.4); GLOM FILT RATE Estimated 91.4 mL/min (>60); GLUCOSE FASTING 146 mg/dL (70-110); POTASSIUM 3.4 mmol/L (3.5-5.1); PROTEIN TOTAL SERUM 6.6 g/dL (6.0-8.3); SODIUM 139 mmol/L (135-145)
[2016-11-05 12:07] LABS: BILIRUBIN, DIRECT <0.1 mg/dL (0.0-0.2); BILIRUBIN,INDIRECT 0.4 mg/dL (0.0-0.9)
[2016-11-05] MEDS ORDERED: PRILOSEC PO (13:07)
[2016-11-05] MEDS ORDERED: PATIENT'S PHARMACY (13:13)
[2016-11-05 18:53] LABS: %MB 6.5 % (0.0-4.0); MB 6.2 ng/ml
[2016-11-05 19:02] LABS: CALCIUM SERUM 8.7 mg/dL (8.4-10.2); CREATININE SERUM 0.6 mg/dL (0.6-1.4); GLOM FILT RATE Estimated 86.1 mL/min (>60); POTASSIUM 4.5 mmol/L (3.5-5.1)
[2016-11-06 01:02] LABS: %MB 6.6 % (0.0-4.0); MB 5.2 ng/ml
[2016-11-06 05:32] LABS: HEMATOCRIT 32.6 % (35.0-45.0); HEMOGLOBIN 10.6 gm/dL (12.0-16.0); MEAN CELL VOLUME 96.8 FL (83-96); MEAN CORPUSCULAR HEMOGLOBIN 31.5 PG (28-34); MEAN CORPUSCULAR HGB CONC 32.6 g/dL (30-36); MEAN PLATELET VOLUME 6.8 FL (6.5-11.5); RED BLOOD COUNT 3.37 X10e (3.90-5.30); RED CELL DISTRIBUTION WIDTH 14.7 % (11.0-15.5); WHITE BLOOD COUNT 6.5 X10e3 (4.0-10.5)
[2016-11-06 05:56] LABS: CALCIUM SERUM 8.1 mg/dL (8.4-10.2); CREATININE SERUM 0.5 mg/dL (0.6-1.4); GLOM FILT RATE Estimated 91.4 mL/min (>60); MAGNESIUM 1.3 mg/dL (1.6-3.0); POTASSIUM 3.5 mmol/L (3.5-5.1)
[2016-11-07 09:33] LABS: BUN/CREATININE RATIO 28.57; CALCIUM SERUM 8.9 mg/dL (8.4-10.2); CREATININE SERUM 0.7 mg/dL (0.6-1.4); GLOM FILT RATE Estimated 81.8 mL/min (>60); MAGNESIUM 1.7 mg/dL (1.6-3.0); POTASSIUM 4.7 mmol/L (3.5-5.1)
[2016-11-08 05:34] LABS: HEMATOCRIT 32.7 % (35.0-45.0); HEMOGLOBIN 10.7 gm/dL (12.0-16.0); MEAN CELL VOLUME 95.9 FL (83-96); MEAN CORPUSCULAR HEMOGLOBIN 31.3 PG (28-34); MEAN CORPUSCULAR HGB CONC 32.6 g/dL (30-36); MEAN PLATELET VOLUME 7.1 FL (6.5-11.5); RED BLOOD COUNT 3.41 X10e (3.90-5.30); RED CELL DISTRIBUTION WIDTH 14.7 % (11.0-15.5); WHITE BLOOD COUNT 7.8 X10e3 (4.0-10.5)
[2016-11-08 05:55] LABS: BUN/CREATININE RATIO 44.28; CALCIUM SERUM 8.5 mg/dL (8.4-10.2); CREATININE SERUM 0.7 mg/dL (0.6-1.4); GLOM FILT RATE Estimated 81.8 mL/min (>60); MAGNESIUM 1.9 mg/dL (1.6-3.0); POTASSIUM 4.1 mmol/L (3.5-5.1)
[2016-11-08 06:18] LABS: PARTIAL THROMBOPLASTIN TIME 32.4 SECONDS (23.5-31.3); PROTHROMBIN TIME (PATIENT) 10.5 SECONDS (9.6-11.5)
[2016-11-09 06:57] LABS: BUN/CREATININE RATIO 57.5; CALCIUM SERUM 9.2 mg/dL (8.4-10.2); CREATININE SERUM 0.8 mg/dL (0.6-1.4); GLOM FILT RATE Estimated 69.7 mL/min (>60); MAGNESIUM 2.2 mg/dL (1.6-3.0)
[2016-11-09] MEDS ORDERED: METOPROLOL SUCC25 MG PO (07:53)
[2016-11-09] MEDS ORDERED: ATORVASTATIN CA80 MG PO (07:54)
[2016-11-09] MEDS ORDERED: BUMEX1 MG PO (07:54)
[2016-11-09] MEDS ORDERED: K-DUR20 ME1 PO (07:55)
[2016-11-09] MEDS ORDERED: MAG-OX 400400 MG PO (07:56)
[2016-11-09] MEDS ORDERED: ASPIRIN81 MG PO (08:06)
== END 2016-11-09 09:33 | disposition home health service (06) | DRG 292 ==
LOC: CED 10:39 → CEDOF 12:40 → C5C 12:40 → CEDOF 13:34 → CED 13:34 → CEDOF 15:00 → C5C 15:00
PROVIDERS: Emergency Medicine; Internal Medicine; Internal Medicine Cardiovascular Disease
PROC: B24BZZZ Ultrasonography of Heart with Aorta (ICD-10-PCS; principal; 2016-11-05)
DX: I11.0 Hypertensive heart disease with heart failure (principal); Z68.1 Body mass index [BMI] 19.9 or less, adult; E11.9 Type 2 diabetes mellitus without complications; M06.9 Rheumatoid arthritis, unspecified; E83.42 Hypomagnesemia; I50.21 Acute systolic (congestive) heart failure; I08.0 Rheumatic disorders of both mitral and aortic valves; M48.06 Spinal stenosis, lumbar region; E78.5 Hyperlipidemia, unspecified; Z79.84 Long term (current) use of oral hypoglycemic drugs; M81.0 Age-related osteoporosis without current pathological fracture; F41.1 Generalized anxiety disorder; E87.6 Hypokalemia; R94.31 Abnormal electrocardiogram [ECG] [EKG]; R09.02 Hypoxemia; R63.6 Underweight; Z90.49 Acquired absence of other specified parts of digestive tract
CPT/HCPCS: 36415; 71010; 71020; 80048; 80076; 82550; 82553; 82947; 83735; 83880; 84484; 85025; 85027; 85610; 85730; 93005; 93306; 97163; 97166; 99285; G8978-GP; G8979-GP; G8980-GP; G8987-GO; G8988-GO; G8989-GO; J1650; J1815; J1940; J3475

== ENCOUNTER → 2017-01-15 | Day surgery (SDC) | payer OTHER ==
[~2017-01-15] MED LIST changes: +ASPIRIN81 MG PO; +ATORVASTATIN CA80 MG PO; +BUMEX1 MG PO; +K-DUR20 ME1 PO; +MAG-OX 400400 MG PO; +PATIENT'S PHARMACY
--- NOTE | ~2017-01-15 | OR ---
Unit #: [id number] #: [id number] Patient: REBECCA BAÑUELOS [id number] [address] [address] [id number] O MR#: [id number] NAME: REBECCA BAÑUELOS. ROOM: Date of Procedure: 01/15/2017 Admission Date: 01/15/2017 Surgeon: Isreal Cook M.D. : 1935 Attending Physician: Hunter Cook Primary Care Physician: Isra Gamino M.D. SURGERY CENTER OPERATIVE NOTE PROCEDURE PERFORMED Lumbar epidural steroid injection under x-ray guided needle placement with provider administered conscious sedation. PREOPERATIVE DIAGNOSES 1. Acute lumbar radiculitis. 2. Spinal stenosis, lumbosacral spine. 3. Degenerative joint disease, lumbosacral spine. 4. Degenerative disk disease, lumbosacral spine. INDICATIONS FOR PROCEDURE The patient presents today with longstanding history of chronic lumbar radicular pain secondary to her underlying degenerative processes. She is generally fairly well managed medically with ongoing continuous medical management; however, she does occasionally experience exacerbations, which to date have only responded to epidural steroid injections. Her usual amount of relief with an epidural steroid injection is approximately 60% for 6 to 8 weeks. She presents today with a 2 to 4 week history of an exacerbation which had broken through her usual and ongoing conservative measures. It is similar in character to past exacerbations. It is advancing in a crescendo pattern and has begun to negatively impact her activities of daily living. After discussing her treatment, it appears that the patient was helped most by an L4-L5 caudal combined approach at last visit. DESCRIPTION OF PROCEDURE Following this, she was taken to the operating room where she was prepped and draped in a sterile manner. Standard monitors were applied. She was sedated with 0.5 mg of IV Versed and required two additional doses of 0.5 mg of IV Versed throughout the duration of procedure. The caudal epidural space and the L4-L5 epidural spaces were accessed using loss of resistance technique and x-ray guidance. Needle placement was confirmed at each level with injection of 2 mL of Omnipaque. Total x-ray time for this dual needle placement was 11 seconds. At the caudal epidural space, there was good superior flow. At the L4-L5 level, there was good superior and inferior flow. Following successful needle placement confirmation, the patient received an injectate containing 4 mL of normal saline and 80 mg of methylprednisolone at both levels for a total injectate volume today of 8 mL of normal saline and 80 mg of methylprednisolone. She tolerated this procedure well. She was discharged home with followup instructions, which include an offer to return to this clinic as early as 03/26/2017 if we could be of further service to her. Unit #: [id number] #: [id number] Patient: REBECCA BAÑUELOS Dictated by... Lindsay Rizo/yared TD: 01/15/2017 14:22 JOB #: [id number] SURGERY CENTER OPERATIVE NOTE Page 1 of 1 X Hunter Cook MD X PROCEDURE OPERATIVE NOTE
== END | disposition home or self-care (01) ==
LOC: CCSC 09:45
DX: M47.27 Other spondylosis with radiculopathy, lumbosacral region (principal); M51.17 Intervertebral disc disorders with radiculopathy, lumbosacral region; M48.07 Spinal stenosis, lumbosacral region
CPT/HCPCS: 82947; J1040; J2250